=== PATIENT | male | born 1990 | race African-American/Black ===

== ENCOUNTER 2017-03-11 11:26 | Emergency (ER) | payer SELFPAY ==
[~2017-03-11] VITALS: Ht 170.2 cm; Wt 99.8 kg
[~2017-03-11 11:26] MED LIST: ALBU17AE3; ALBU17AE3 IH; HYDR12.570; HYDR1TAB PO
--- OUTSIDE RECORDS SUMMARY | 2017-03-11 11:32 | XMS REPORT ---
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 Info Not Available Non Drug Allergy Problems Problem Type Condition Code Onset Dates Condition Status Assessment HTN (hypertension) I10 Active Problem HTN (hypertension) I10 Active Problem Rash and other nonspecific skin eruption 782.1 Active Problem Asthma J45.909 Active Problem Unspecified disorder of skin and subcutaneous tissue 709.9 Active Assessment Asthma J45.909 Active Problem Asthma, unspecified, unspecified status 493.90 Active Problem Colitis, enteritis, and gastroenteritis of presumed infectious origin 009.1 Active Medications Medication Code System Code Instructions Start Date End Date Status Dosage Lisinopril [facility] [place] [address]-29 10 MG Orally Once a day Apr 11, 2015 1 tablet Ventolin HFA [facility] [place] [address]-86 90 mcg/actuation every 4 hrs prn May 12, 2013 inhale 2 puff by Inhalation route as needed every 4 hours PRN for cough or wheeze or before exercise Symbicort [facility] [place] [address]-91 160-4.5 mcg/actuation Twice a day May 29, 2013 Aug 09, 2015 inhale 2 puffs by inhalation route 2 times per day in the morning and evening Procedures Procedure Coding System Code Date Office Visit, Est Pt., Level 3 CPT-4 11330 Apr 11, 2015 Vital Signs Date/Time: Apr 11, 2015 Temperature 96.8 F Weight 208.2 lbs Height 67 in BMI 32.61 Index Blood Pressure Diastolic 82 mmHg Blood Pressure Systolic 120 mmHg Cardiac Monitoring Heart Rate 76 bpm Results No Known Results Summary Purpose [employer] Submission
[2017-03-11] MEDS ORDERED: DEXAMETHASONE 10 MG/ML (DECADRON) 1 ML VIAL ONE (11:52)
[2017-03-11] MEDS ORDERED: AMOX500C2 PO (11:58)
[2017-03-11] MEDS ORDERED: FEXO1TAB40 PO (11:58)
--- NOTE | 2017-03-11 11:58 | ED EENT ---
History of Present Illness General Chief Complaint: Cough/Cold/Flu Symptoms Stated Complaint: RUNNING NOSE,CONGESTED Nursing Triage Note: c/o runny nose and stuffy nose x 3 weeks Source: patient Exam Limitations: no limitations History of Present Illness Time seen by provider: 11:54 Initial Comments To ER with nasal congestion and rhinorrhea for 3 weeks. No pain. No fevers. No sore throat. No cough. He's tried multiple gnov-xrt-qmlhsra medications without relief. Timing/Duration: gradual Severity: moderate Location: nose Allergies and Home Medications Allergies Coded Allergies: No Known Drug Allergies (Unverified Allergy, Mild, 11/07/09) Home Medications Albuterol 17 Gm Inh, (Reported) Albuterol 17 Gm Inh, 2 SPRAY IH Q 4 HOURS PRN for BREATHING, #1 USE WITH SPACER AT ALL TIMES---FOR BREATHING Prescribed by: VINCE BARRETT on 05/10/13 4822 Review of Systems Constitutional: see HPI Eyes: No Symptoms Reported Ears: No Symptoms Reported Nose: see HPI, congestion Mouth: no symptoms reported Throat: no symptoms reported Respiratory: no symptoms reported Cardiovascular: no symptoms reported Musculoskeletal: no symptoms reported Past Bxvzslc-Iddrbk-Zqrzla Hx Patient Social History Alcohol Use: Occasionally Uses Recreational Drug Use: No Smoking Status: Never a Smoker Recent Foreign Travel: No Contact w/Someone Who Travel: No Recent Infectious Disease Expo: No Surgeries History of Surgeries: No Respiratory History of Respiratory Disorde: Yes Respiratory Disorders: Asthma Cardiovascular History of Cardiac Disorders: Yes Neurological History of Neurological Disord: No Reproductive System Sexually Transmitted Disease: No Gastrointestinal History of Gastrointestinal Di: No Musculoskeletal History of Musculoskeletal Dis: No Endocrine History of Endocrine Disorders: No Cancer History of Cancer: No Psychosocial History of Psychiatric Problem: No Integumentary History of Skin or Integumenta: No Blood Transfusions History of Blood Disorders: No Physical Exam Vital Signs Vital Sign - Last 12Hours 03/11/17 11:43 Temp 98.6 Pulse 75 Resp 18 B/P (MAP) 142/98 Pulse Ox 97 General Appearance: WD/WN, no apparent distress Eyes: bilateral eye normal inspection, bilateral eye PERRL, bilateral eye EOMI Ears: bilateral ear auricle normal, bilateral ear canal normal, bilateral ear TM normal Neck: non-tender, full range of motion Respiratory: normal breath sounds, no respiratory distress, no accessory muscle use Gastrointestinal: normal bowel sounds, non tender, soft Neurologic/Psychiatric: alert, normal mood/affect, oriented x 3 Skin: normal color, warm/dry Progress/Results/Core Measures Results/Orders My Orders Orders - GM ADAME APRN Dexamethasone Pf Injection (Decadron Pf (03/11/17 12:00) Vital Signs/I&O Vital Sign - Last 12Hours 03/11/17 11:43 Temp 98.6 Pulse 75 Resp 18 B/P (MAP) 142/98 Pulse Ox 97 Blood Pressure Mean: 113 Departure Impression Impression: Primary Impression: Acute bacterial sinusitis Disposition: HOME, SELF-CARE Condition: Stable (ERASED) Departure-Patient Inst. Decision time for Depature: 11:55 Referrals: NO,LOCAL PHYSICIAN (PCP/Family) Primary Care Physician Patient Instructions: Sinusitis in Adults Add. Discharge Instructions: Medication as directed 1. Return to ER for any concerns 2. See your regular doctor later this week Scripts Fexofenadine/Pseudoephedrine (Sravanthi-D 12 Hour Tablet) 1 Each Tab.er.12h 1 EACH PO BID Y for CONGESTION, #14 TAB Prov: GM ADAME APRN 03/11/17 Amoxicillin (Amoxicillin) 500 Mg Capsule 500 MG PO TID, #30 CAP Prov: GM ADAME APRN 03/11/17 GM ADAME APRN Mar 11, 2017 11:58
[2017-03-11] MEDS ORDERED: DEXAMETHASONE PF 10 MG/ML (DECADRON) VIAL IM ONE (12:00)
[2017-03-11 12:02] VITALS: BP 142/98
== END 2017-03-11 12:02 | disposition home or self-care (01) ==
LOC: EDUNIT# 11:26 → ER 11:29
DX: J01.90 Acute sinusitis, unspecified (principal); B96.89 Other specified bacterial agents as the cause of diseases classified elsewhere; J45.909 Unspecified asthma, uncomplicated
CPT/HCPCS: 96372; 99284

== ENCOUNTER 2017-07-12 19:02 | Emergency (ER) | payer BC, OTHER ==
[~2017-07-12] VITALS: Ht 170.2 cm; Wt 97.1 kg
[~2017-07-12 19:02] MED LIST changes: +AMOX500C2 PO; +FEXO1TAB40 PO
[2017-07-12] MEDS ORDERED: RT-ALBUTEROL/IPRATROPIUM 3 ML (DUONEB) VIAL INH ONE (19:15)
[2017-07-12 19:28] LABS: BASOPHILS % (AUTO) 1 % (0-10); EOSINOPHILS # (AUTO) 0.3 10^3/uL (0.0-0.3); EOSINOPHILS % (AUTO) 4 % (0-10); HEMATOCRIT 43 % (40-54); HEMOGLOBIN 15.5 G/DL (13.3-17.7); LYMPHOCYTES # (AUTO) 2.5 X 10^3 (1.0-4.0); LYMPHOCYTES % (AUTO) 41 % (12-44); MEAN CORPUSCULAR HEMOGLOBIN 32 PG (25-34); MEAN CORPUSCULAR HGB CONC 36 G/DL (32-36); MEAN CORPUSCULAR VOLUME 89 FL (80-99); MONOCYTES # (AUTO) 0.3 X 10^3 (0.0-1.0); MONOCYTES % (AUTO) 6 % (0-12); NEUTROPHILS # (AUTO) 2.9 X 10^3 (1.8-7.8); NEUTROPHILS % (AUTO) 49 % (42-75); PLATELET COUNT 176 10^3/uL (130-400); RED BLOOD COUNT 4.78 10^6/uL (4.35-5.85); RED CELL DISTRIBUTION WIDTH 12.7 % (10.0-14.5)
[2017-07-12 19:47] LABS: ALANINE AMINOTRANSFERASE 45 U/L (0-55); ALBUMIN 4.2 GM/DL (3.2-4.5); ALKALINE PHOSPHATASE 39 U/L (40-136); BILIRUBIN,TOTAL 0.4 MG/DL (0.1-1.0); BUN/CREATININE RATIO 13; CALCIUM 9.2 MG/DL (8.5-10.1); CARBON DIOXIDE 26 MMOL/L (21-32); CHLORIDE 102 MMOL/L (98-107); CREATININE SERUM 1.02 MG/DL (0.60-1.30); GFR ESTIMATED > 60; GLUCOSE 89 MG/DL (70-105); POTASSIUM 4.1 MMOL/L (3.6-5.0); SODIUM 139 MMOL/L (135-145); TOTAL PROTEIN 7.5 GM/DL (6.4-8.2)
--- NOTE | 2017-07-12 19:56 | Diagnostic Imaging Report ---
EXAMINATION: PA and lateral chest INDICATION: Chest tightness and cough with history of asthma. FINDINGS: The lungs are hyperinflated evidenced by flattening of the diaphragms. There is some mild prominence of the central interstitial markings. There is no focal infiltrate. There is no effusion or pneumothorax. The heart size appears normal. There is no osseous abnormality. IMPRESSION: 1. Pulmonary hyperinflation with air trapping. No focal infiltrates are demonstrated. Dictated by: Dictated on workstation # [id number]
[2017-07-12] MEDS ORDERED: GUAI1TBM19 PO (20:04)
[2017-07-12] MEDS ORDERED: METH4TAB PO (20:04)
[2017-07-12] MEDS ORDERED: BUDE90AE2 IH (20:04)
[2017-07-12] MEDS ORDERED: BENZ-13 PO (20:04)
[2017-07-12] MEDS ORDERED: RX-ALBUTEROL INHALER (PROAIR) 8 GM IH STA (20:05)
--- NOTE | 2017-07-12 20:05 | ED Respiratory ---
General Chief Complaint: Chest Pain Stated Complaint: CP AND ASTHMA Nursing Triage Note: pt reports to er today with soa and chest pain when taking deep breath. sent over from [facility]. pt reports this has been going on for few weeks and not getting any better. pt ran out of albuterol inhaler on 07/10/17. pt denies soa at this time. vss. Source: patient History of Present Illness Time seen by provider: 19:10 Initial Comments PT ARRIVES VIA POV--SENT HERE FROM [facility]. 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 --LEFT WORK TODAY DUE TO THESE SYMPTOMS PCP: [facility] Allergies and Home Medications Allergies Coded Allergies: No Known Drug Allergies (Unverified Allergy, Mild, 11/07/09) Home Medications Albuterol 17 Gm Inh, 2 SPRAY IH Q 4 HOURS PRN for BREATHING, #1 USE WITH SPACER AT ALL TIMES---FOR BREATHING Prescribed by: VINCE BARRETT on 05/10/13 2308 Benzonatate 100 Mg Capsule, 1-2 TAB PO TID, #30 Prescribed by: VINCE BARRETT on 07/12/172003 Budesonide 90 Mcg Aer.pow.ba, 90 MCG IH BID, #1 Prescribed by: VINCE BARRETT on 07/12/172003 Guaifenesin/Dextromethorphan 1 Each Tbmp.12hr, 1 EACH PO BID for 10 Days, #20 Prescribed by: VINCE BARRETT on 07/12/172003 Methylprednisolone 4 Mg Tab.ds.pk, 4 MG PO UD, #1 Prescribed by: VINCE BARRETT on 07/12/172003 Constitutional: no symptoms reported, No chills, No diaphoresis, No dizziness, No fever EENTM: no symptoms reported, No nose congestion Respiratory: see HPI, cough, short of breath (WITH COUGHING ) Cardiovascular: see HPI, chest pain (WITH COUGHING) Gastrointestinal: no symptoms reported Genitourinary: no symptoms reported Musculoskeletal: no symptoms reported Skin: no symptoms reported Psychiatric/Neurological: See HPI, Anxiety Hematologic/Lymphatic: No Symptoms Reported Immunological/Allergic: no symptoms reported Past Jqoeymo-Bvwprb-Conwzf Hx Patient Social History Alcohol Use: Occasionally Uses (ONCE A WEEK) Alcohol Beverage of Choice: Beer Recreational Drug Use: Yes (THC) Drug of Choice: Marijuana Smoking Status: Never a Smoker 2nd Hand Smoke Exposure: Yes Recent Foreign Travel: No Contact w/Someone Who Travel: No Recent Infectious Disease Expo: No Recent Hopitalizations: No Physical Abuse: No Sexual Abuse: No Mistreated: No Fear: No Immunizations Up To Date Tetanus Booster (TDap): Unknown Seasonal Allergies Seasonal Allergies: Yes Surgeries History of Surgeries: No Respiratory History of Respiratory Disorde: Yes Respiratory Disorders: Asthma Cardiovascular History of Cardiac Disorders: Yes (HAS BEEN OFF BP MEDICATIONS FOR A COUPLE OF YEARS--USED TO BE ON HYDROCHLOROTHIAZIDE--STATES A PROVIDER "HE WAS TOO YOUNG FOR BLOOD PRESSURE MEDICATION" AND TOLD HIM TO STOP TAKING IT. PER PT ON ) Cardiac Disorders: Hypertension Neurological History of Neurological Disord: No Reproductive System Sexually Transmitted Disease: No Genitourinary History of Genitourinary Disor: No Gastrointestinal History of Gastrointestinal Di: No Musculoskeletal History of Musculoskeletal Dis: No Endocrine History of Endocrine Disorders: No HEENT History of HEENT Disorders: No Cancer History of Cancer: No Psychosocial History of Psychiatric Problem: No Suicide Risk Score: 1 Integumentary History of Skin or Integumenta: No Blood Transfusions History of Blood Disorders: No Physical Exam Vital Signs Vital Sign - Last 12Hours 07/12/17 19:10 Temp 98.6 Pulse 75 Resp 18 B/P (MAP) 144/104 (117) Pulse Ox 97 O2 Delivery Room Air Capillary Refill : Less Than 3 Seconds General Appearance: WD/WN, no apparent distress HEENT: PERRL/EOMI, normal ENT inspection, TMs normal, pharynx normal Neck: non-tender, full range of motion, supple, normal inspection Respiratory: normal breath sounds, no respiratory distress, no accessory muscle use Cardiovascular: normal peripheral pulses, regular rate, rhythm, no edema, no murmur Gastrointestinal: normal bowel sounds, non tender, soft Extremities: normal inspection, no pedal edema, no calf tenderness, normal capillary refill 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/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 II-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 nml as tested, no motor/sensory deficits, alert, normal mood/affect, oriented x 3 Skin: normal color, warm/dry Progress/Results/Core Measures Suspected Sepsis Recent Fever Within 48 Hours: No Infection Criteria Present: None New/Unexplained Altered Menta: No Sepsis Screen: No Definite Risk Sepsis Diagnosis: SIRS Temperature:98.6 Pulse: 75 Respiratory Rate: 18 Laboratory Tests 07/12/17 19:20: White Blood Count 6.0 Blood Pressure 144 /104 Mean: 117 Laboratory Tests 07/12/17 19:20: Creatinine 1.02, Platelet Count 176, Total Bilirubin 0.4 Results/Orders Lab Results Laboratory Tests Test 07/12/17 19:20 07/12/17 19:52 Range/Units White Blood Count 6.0 4.3-11.0 10^3/uL Red Blood Count 4.78 4.35-5.85 10^6/uL Hemoglobin 15.5 13.3-17.7 G/DL Hematocrit 43 40-54 % Mean Corpuscular Volume 89 80-99 FL Mean Corpuscular Hemoglobin 32 25-34 PG Mean Corpuscular Hemoglobin Concent 36 32-36 G/DL Red Cell Distribution Width 12.7 10.0-14.5 % Platelet Count 176 130-400 10^3/uL Mean Platelet Volume 10.0 7.4-10.4 FL Neutrophils (%) (Auto) 49 42-75 % Lymphocytes (%) (Auto) 41 12-44 % Monocytes (%) (Auto) 6 0-12 % Eosinophils (%) (Auto) 4 0-10 % Basophils (%) (Auto) 1 0-10 % Neutrophils # (Auto) 2.9 1.8-7.8 X 10^3 Lymphocytes # (Auto) 2.5 1.0-4.0 X 10^3 Monocytes # (Auto) 0.3 0.0-1.0 X 10^3 Eosinophils # (Auto) 0.3 0.0-0.3 10^3/uL Basophils # (Auto) 0.0 0.0-0.1 10^3/uL Sodium Level 139 135-145 MMOL/L Potassium Level 4.1 3.6-5.0 MMOL/L Chloride Level 102 98-107 MMOL/L Carbon Dioxide Level 26 21-32 MMOL/L Anion Gap 11 5-14 MMOL/L Blood Urea Nitrogen 13 7-18 MG/DL Creatinine 1.02 0.60-1.30 MG/DL Estimat Glomerular Filtration Rate > 60 BUN/Creatinine Ratio 13 Glucose Level 89 70-105 MG/DL Calcium Level 9.2 8.5-10.1 MG/DL Magnesium Level 2.0 1.8-2.4 MG/DL Total Bilirubin 0.4 0.1-1.0 MG/DL Aspartate Amino Transf (AST/SGOT) 30 5-34 U/L Alanine Aminotransferase (ALT/SGPT) 45 0-55 U/L Alkaline Phosphatase 39 L 40-136 U/L Troponin I < 0.30 <0.30 NG/ML B-Type Natriuretic Peptide < 10.0 <100.0 PG/ML Total Protein 7.5 6.4-8.2 GM/DL Albumin 4.2 3.2-4.5 GM/DL Urine Opiates Screen NEGATIVE NEGATIVE Urine Oxycodone Screen NEGATIVE NEGATIVE Urine Methadone Screen NEGATIVE NEGATIVE Urine Propoxyphene Screen NEGATIVE NEGATIVE Urine Barbiturates Screen NEGATIVE NEGATIVE Ur Tricyclic Antidepressants Screen NEGATIVE NEGATIVE Urine Phencyclidine Screen NEGATIVE NEGATIVE Urine Amphetamines Screen NEGATIVE NEGATIVE Urine Methamphetamines Screen NEGATIVE NEGATIVE Urine Benzodiazepines Screen NEGATIVE NEGATIVE Urine Cocaine Screen NEGATIVE NEGATIVE Urine Cannabinoids Screen POSITIVE H NEGATIVE My Orders Orders - VINCE BARRETT K DO Saline Lock/Iv-Start (07/12/17 19:10) Ekg Tracing (07/12/17 19:10) Monitor-Rhythm Ecg Trace Only (07/12/17 19:10) BNP (07/12/17 19:10) Cbc With Automated Diff (07/12/17 19:10) Comprehensive Metabolic Panel (07/12/17 19:10) Magnesium (07/12/17 19:10) Troponin I (07/12/17 19:10) Chest Pa/Lat (2 View) (07/12/17 19:10) Albuterol/Ipra Inhalation Soln (Duoneb I (07/12/17 19:15) Rt Request For Service (07/12/17 19:10) Svn Sm Volume Nebulizer Rt-Rfs (07/12/17 19:10) Drug Screen Stat (Urine) (07/12/17 19:21) Rx-Albuterol Inhaler (Rx-Proair) (07/12/17 20:05) Methylprednisolone Sod Succ (Solu-Medrol (07/12/17 20:15) Benzonatate Capsule (Tessalon Perles) (07/12/17 20:15) Medications Given in ED Vital Signs/I&O Vital Sign - Last 12Hours 07/12/17 07/12/17 07/12/17 07/12/17 19:10 19:29 19:30 20:57 Temp 98.6 Pulse 75 79 Resp 18 18 B/P (MAP) 144/104 (117) Pulse Ox 97 96 98 O2 Delivery Room Air Room Air Room Air Room Air Capillary Refill : Less Than 3 Seconds Blood Pressure Mean: 117 Progress Note : Progress Note FEELS BETTER AT DISMISSAL ALSO DISCUSSED THE NEED FOR FOLLOW UP WITH [facility] THIS WEEK FOR THIS PROBLEM WELL ELEVATED BP. BP DOWN TO 141/95 PRIOR TO DISMISSAL Diagnostic Imaging Comments CXR--NO ACUTE PROCESS, HYPER INFLATION PER RADIOLOGIST REPORT @ 1999 Reviewed: Reviewed by Me Departure Impression Impression: Primary Impression: Asthma Additional Impression: HTN (hypertension) Disposition: HOME, SELF-CARE Condition: Stable Departure-Patient Inst. Referrals: [facility] Patient Instructions: Asthma Action Plan, Asthma, Adult (DC), Avoiding Asthma Triggers, Rescue vs Controller Inhalers Add. Discharge Instructions: USE YOUR INHALERS PRESCRIBED--DO NOT USE MORE OFTEN THAN PRESCRIBED FOLLOW UP WITH [facility] THIS WEEK FOR FURTHER CARE All discharge instructions reviewed with patient and/or family. Voiced understanding. Scripts Guaifenesin/Dextromethorphan (Mucinex Dm ER 1,200-60 mg Tab) 1 Each Tbmp.12hr 1 EACH PO BID for 10 Days, #20 EA Prov: NENA,VINCE K DO 07/12/17 Benzonatate (Tessalon Perle) 100 Mg Capsule 1-2 TAB PO TID for Cough, #30 CAP Prov: NENA,VINCE K DO 07/12/17 Methylprednisolone (Medrol) 4 Mg Tab.ds.pk 4 MG PO UD, #1 PKG Prov: NENA,VINCE K DO 07/12/17 Budesonide (Pulmicort Flexhaler) 90 Mcg Aer.pow.ba 90 MCG IH BID, #1 UNIT Prov: VINCE BARRETT DO 07/12/17 VINCE BARRETT DO Jul 12, 2017 20:05
[2017-07-12 20:13] LABS: AMPHETAMINE SCREEN, URINE NEGATIVE (NEGATIVE); BARBITURATE SCREEN URINE NEGATIVE (NEGATIVE); BENZODIAZEPINES SCREEN URINE NEGATIVE (NEGATIVE); CANNABINOID SCREEN, URINE POSITIVE (NEGATIVE); COCAINE SCREEN URINE NEGATIVE (NEGATIVE); METHADONE STAT NEGATIVE (NEGATIVE); METHAMPHETAMINE SCREEN URINE S NEGATIVE (NEGATIVE); OPIATE SCREEN URINE NEGATIVE (NEGATIVE); OXYCODONE STAT NEGATIVE (NEGATIVE); PROPOXYPHENE STAT NEGATIVE (NEGATIVE); TRICYCLIC ANTIDEPRESSANTS SCRE NEGATIVE (NEGATIVE)
[2017-07-12] MEDS ORDERED: methylPREDNISolone 125 MG (Solu-MEDROL) VIAL IVP ONE (20:15)
[2017-07-12] MEDS ORDERED: BENZONATATE 100 MG (TESSALON) CAPSULE PO SCH (20:15)
[2017-07-12 20:57] VITALS: BP 145/89
--- OUTSIDE RECORDS SUMMARY | 2017-07-13 00:54 | XMS REPORT | Continuity of Care Document ---
Author Author [facility] Organization [facility] Address Unknown Phone Unavailable Allergies Active Description Code Type Severity Reaction Onset Reported/Identified Relationship to Patient Clinical Status Yes No Known Drug Allergies [id number] Drug Allergy Mild N/A 11/07/2009 Medications There is no data. Problems Date Dx Coded Attending Type Code Diagnosis Diagnosed By 11/08/2009 MONSE JOHNSON APRN 848.9 UNSPECIFIED SITE OF SPRAIN AND STRAIN 11/08/2009 NICOLAS LEAHY DO 848.9 UNSPECIFIED SITE OF SPRAIN AND STRAIN 11/08/2009 FABRIZIO DAVILA APRN 848.9 UNSPECIFIED SITE OF SPRAIN AND STRAIN 11/08/2009 TEO NGUYEN APRN 848.9 UNSPECIFIED SITE OF SPRAIN AND STRAIN 11/18/2010 MONSE JOHNSON APRN 704.8 FOLLICULITIS 11/18/2010 NICOLAS LEAHY DO 704.8 FOLLICULITIS 11/18/2010 FABRIZIO DAVILA APRN S 704.8 FOLLICULITIS 11/18/2010 TEO NGUYEN APRN 704.8 FOLLICULITIS 04/03/2011 MONSE JOHNSON APRN R 706.1 OTHER ACNE 04/03/2011 NICOLAS LEAHY DO 706.1 OTHER ACNE 04/03/2011 FABRIZIO DAVILA APRN S 706.1 OTHER ACNE 04/03/2011 TEO NGUYEN APRN 706.1 OTHER ACNE 05/28/2011 MONSE JOHNSON APRN 701.4 KELOID SCAR 05/28/2011 NICOLAS LEAHY DO 701.4 KELOID SCAR 05/28/2011 FABRIZIO DAVILA APRN S 701.4 KELOID SCAR 05/28/2011 TEO NGUYEN APRN 701.4 KELOID SCAR 05/10/2013 VINCE BARRETT DO Ot 493.90 ASTHMA, UNSPECIFIED 05/10/2013 VINCE BARRETT DO Ot 493.92 ASTHMA, UNSPECIFIED, W (ACUTE) EXACERBAT 05/10/2013 VINCE BARRETT DO Ot V15.81 HX OF PAST NONCOMPLIANCE 05/12/2013 MONSE JOHNSON APRN 493.90 ASTHMA UNSPECIFIED 05/12/2013 ARMOND [place] NICOLAS Tommy 493.90 ASTHMA UNSPECIFIED 05/12/2013 FABRIZIO DAVILA APRN 493.90 ASTHMA UNSPECIFIED 05/12/2013 TEO NGUYEN APRN 493.90 ASTHMA UNSPECIFIED 05/29/2013 NICOLAS LEAHY DO K 709.9 UNSPECIFIED DISORDER OF SKIN AND SUBCUTANEOUS TISSUE 05/29/2013 FABRIZIO DAVILA APRN 709.9 UNSPECIFIED DISORDER OF SKIN AND SUBCUTANEOUS TISSUE 05/29/2013 TEO NGUYEN APRN 709.9 UNSPECIFIED DISORDER OF SKIN AND SUBCUTANEOUS TISSUE 06/18/2013 FABRIZIO DAVILA APRN 009.1 GASTROENTERITIS, ACUTE INFECTIOUS 06/18/2013 TEO NGUYEN APRN 009.1 GASTROENTERITIS, ACUTE INFECTIOUS 12/07/2013 TEO NGUYEN APRN 782.1 RASH 03/11/2017 GM ADAME APRN Ot B96.89 OTH BACTERIAL AGENTS THE CAUSE OF DIS 03/11/2017 GM ADAME APRN Ot J01.90 ACUTE SINUSITIS, UNSPECIFIED 03/11/2017 GM ADAME APRN Ot J45.909 UNSPECIFIED ASTHMA, UNCOMPLICATED 03/11/2017 GM ADAME APRN Ot R09.81 NASAL CONGESTION 03/13/2017 GM ADAME APRN Ot B96.89 OTH BACTERIAL AGENTS THE CAUSE OF DIS 03/13/2017 GM ADAME APRN Ot J01.90 ACUTE SINUSITIS, UNSPECIFIED 03/13/2017 GM ADAME APRN Ot J45.909 UNSPECIFIED ASTHMA, UNCOMPLICATED 03/13/2017 GM ADAME APRN Ot R09.81 NASAL CONGESTION Procedures Code Description Performed By Performed On GENERAL S GARFIELD BROWN 05/29/2013 GENERAL S MARK HOBBS 06/18/2013 Results Test Result Range Complete blood count (CBC) with automated white blood cell (WBC) differential - 07/12/17 19:20 Blood leukocytes automated count (number/volume) 6.0 10*3/uL 4.3-11.0 Blood erythrocytes automated count (number/volume) 4.78 10*6/uL 4.35-5.85 Venous blood hemoglobin measurement (mass/volume) 15.5 g/dL 13.3-17.7 Blood hematocrit (volume fraction) 43 % 40-54 Automated erythrocyte mean corpuscular volume 89 [foz_us] 80-99 Automated erythrocyte mean corpuscular hemoglobin (mass per erythrocyte) 32 pg 25-34 Automated erythrocyte mean corpuscular hemoglobin concentration measurement ( mass/volume) 36 g/dL 32-36 Automated erythrocyte distribution width ratio 12.7 % 10.0-14.5 Automated blood platelet count (count/volume) 176 10*3/uL 130-400 Automated blood platelet mean volume measurement 10.0 [foz_us] 7.4-10.4 Automated blood neutrophils/100 leukocytes 49 % 42-75 Automated blood lymphocytes/100 leukocytes 41 % 12-44 Blood monocytes/100 leukocytes 6 % 0-12 Automated blood eosinophils/100 leukocytes 4 % 0-10 Automated blood basophils/100 leukocytes 1 % 0-10 Blood neutrophils automated count (number/volume) 2.9 10*3 1.8-7.8 Blood lymphocytes automated count (number/volume) 2.5 10*3 1.0-4.0 Blood monocytes automated count (number/volume) 0.3 10*3 0.0-1.0 Automated eosinophil count 0.3 10*3/uL 0.0-0.3 Automated blood basophil count (count/volume) 0.0 10*3/uL 0.0-0.1 Comprehensive metabolic panel - 07/12/17 19:20 Serum or plasma sodium measurement (moles/volume) 139 mmol/L 135-145 Serum or plasma potassium measurement (moles/volume) 4.1 mmol/L 3.6-5.0 Serum or plasma chloride measurement (moles/volume) 102 mmol/L 98-107 Carbon dioxide 26 mmol/L 21-32 Serum or plasma anion gap determination (moles/volume) 11 mmol/L 5-14 Serum or plasma urea nitrogen measurement (mass/volume) 13 mg/dL 7-18 Serum or plasma creatinine measurement (mass/volume) 1.02 mg/dL 0.60-1.30 Serum or plasma urea nitrogen/creatinine mass ratio 13 NRG Serum or plasma creatinine measurement with calculation of estimated glomerular filtration rate > NRG Serum or plasma glucose measurement (mass/volume) 89 mg/dL 70-105 Serum or plasma calcium measurement (mass/volume) 9.2 mg/dL 8.5-10.1 Serum or plasma total bilirubin measurement (mass/volume) 0.4 mg/dL 0.1-1.0 Serum or plasma alkaline phosphatase measurement (enzymatic activity/volume) 39 U/L 40-136 Serum or plasma aspartate aminotransferase measurement (enzymatic activity/ volume) 30 U/L 5-34 Serum or plasma alanine aminotransferase measurement (enzymatic activity/volume ) 45 U/L 0-55 Serum or plasma protein measurement (mass/volume) 7.5 g/dL 6.4-8.2 Serum or plasma albumin measurement (mass/volume) 4.2 g/dL 3.2-4.5 Magnesium - 07/12/17 19:20 Magnesium 2.0 mg/dL 1.8-2.4 Serum or plasma troponin i.cardiac measurement (mass/volume) - 07/12/17 19:20 Serum or plasma troponin i.cardiac measurement (mass/volume) < ng/ mL <0.30 Serum or plasma lithium measurement (moles/volume) - 07/12/17 19:20 BNP level < pg/mL <100.0 Urine drug screening test - 07/12/17 19:52 Urine phencyclidine detection by screening method NEGATIVE NEGATIVE Urine benzodiazepines detection by screening method NEGATIVE NEGATIVE Urine cocaine detection NEGATIVE NEGATIVE Urine amphetamines detection by screening method NEGATIVE NEGATIVE Urine methamphetamine detection by screening method NEGATIVE NEGATIVE Urine cannabinoids detection by screening method POSITIVE NEGATIVE Urine opiates detection by screening method NEGATIVE NEGATIVE Urine barbiturates detection NEGATIVE NEGATIVE Screening urine tricyclic antidepressants detection NEGATIVE NEGATIVE Urine methadone detection by screening method NEGATIVE NEGATIVE Urine oxycodone detection NEGATIVE NEGATIVE Urine propoxyphene detection NEGATIVE NEGATIVE Encounters ACCT No. Visit Date/Time Discharge Status Pt. Type Provider Facility Loc./Unit Complaint [id number] 03/11/2017 11:29:00 03/11/2017 12:02:00 DIS Emergency GM ADAME APRN [facility] ER RUNNING NOSE,CONGESTED [id number] 05/10/2013 22:41:00 05/10/2013 23:13:00 DIS Emergency VINCE BARRETT DO [facility] ER ASTHMA ATTACK [id number] 07/12/2017 19:29:00 Document Registration [id number] 12/07/2013 14:49:00 12/07/2013 23:59:59 CLS Outpatient TEO NGUYEN APRN [id number] 06/18/2013 17:24:00 06/18/2013 23:59:59 CLS Outpatient FABRIZIO DAVILA APRN [id number] 05/29/2013 11:03:00 05/29/2013 23:59:59 CLS Outpatient NICOLAS LEAHY DO [id number] 05/12/2013 12:39:00 05/12/2013 23:59:59 CLS Outpatient MONSE JOHNSON APRN
== END 2017-07-12 20:57 | disposition home or self-care (01) ==
LOC: EDUNIT# 19:02 → ER 19:03
DX: J45.909 Unspecified asthma, uncomplicated (principal); I10 Essential (primary) hypertension; F12.10 Cannabis abuse, uncomplicated; Z77.22 Contact with and (suspected) exposure to environmental tobacco smoke (acute) (chronic)
CPT/HCPCS: 36415; 71046; 80053; 80306; 83735; 83880; 84484; 85025; 93005; 93041; 94640

== ENCOUNTER 2019-07-11 02:19 | Emergency (ER) | payer BC, OTHER ==
[~2019-07-11] VITALS: Ht 170 cm; Wt 91.4 kg
[~2019-07-11 02:19] MED LIST changes: +BENZ100C18 PO; +BUDE90AE2 IH; +GUAI1TBM19 PO; +METH4TAB PO
--- NOTE | 2019-07-11 02:37 | NUR ---
pt voided in waiting room restroom when called back. informed urine specimen needed.
[2019-07-11] MEDS ORDERED: LACTATED RINGERS 1,000 ML IV ONE ×2 (03:24→04:16)
[2019-07-11 03:34] LABS: BILIRUBIN,URINE NEGATIVE (NEGATIVE); CLARITY,URINE CLEAR; COLOR,URINE YELLOW; GLUCOSE, URINE (UA) NEGATIVE (NEGATIVE); KETONES,URINE NEGATIVE (NEGATIVE); LEUKOCYTE ESTERASE ,URINE NEGATIVE (NEGATIVE); NITRITE,URINE NEGATIVE (NEGATIVE); PH,URINE 5.5 (5-9); PROTEIN,URINE NEGATIVE (NEGATIVE)
[2019-07-11 03:40] LABS: BASOPHILS % (AUTO) 1 % (0-10); EOSINOPHILS # (AUTO) 0.1 10^3/uL (0.0-0.3); EOSINOPHILS % (AUTO) 2 % (0-10); HEMATOCRIT 44 % (40-54); HEMOGLOBIN 14.9 G/DL (13.3-17.7); LYMPHOCYTES # (AUTO) 2.2 X 10^3 (1.0-4.0); LYMPHOCYTES % (AUTO) 36 % (12-44); MEAN CORPUSCULAR HEMOGLOBIN 33 PG (25-34); MEAN CORPUSCULAR HGB CONC 34 G/DL (32-36); MEAN CORPUSCULAR VOLUME 96 FL (80-99); MEAN PLATELET VOLUME 9.9 FL (7.4-10.4); MONOCYTES # (AUTO) 0.4 X 10^3 (0.0-1.0); MONOCYTES % (AUTO) 7 % (0-12); NEUTROPHILS # (AUTO) 3.4 X 10^3 (1.8-7.8); NEUTROPHILS % (AUTO) 55 % (42-75); PLATELET COUNT 202 10^3/uL (130-400); RED CELL DISTRIBUTION WIDTH 13.7 % (10.0-14.5); WHITE BLOOD COUNT 6.2 10^3/uL (4.3-11.0)
[2019-07-11 03:52] LABS: AMPHETAMINE SCREEN, URINE NEGATIVE (NEGATIVE); BACTERIA,URINE TRACE /HPF; BARBITURATE SCREEN URINE NEGATIVE (NEGATIVE); BENZODIAZEPINES SCREEN URINE NEGATIVE (NEGATIVE); CANNABINOID SCREEN, URINE POSITIVE (NEGATIVE); COCAINE SCREEN URINE NEGATIVE (NEGATIVE); METHADONE STAT NEGATIVE (NEGATIVE); METHAMPHETAMINE SCREEN URINE S NEGATIVE (NEGATIVE); OPIATE SCREEN URINE NEGATIVE (NEGATIVE); OXYCODONE STAT NEGATIVE (NEGATIVE); PROPOXYPHENE STAT NEGATIVE (NEGATIVE); SQUAMOUS EPITHELIAL CELL,UR RARE /HPF; TRICYCLIC ANTIDEPRESSANTS SCRE NEGATIVE (NEGATIVE)
[2019-07-11 04:00] VITALS: BP 127/78
[2019-07-11 04:00] LABS: ALANINE AMINOTRANSFERASE 46 U/L (0-55); ALBUMIN 4.6 GM/DL (3.2-4.5); ALKALINE PHOSPHATASE 45 U/L (40-136); BILIRUBIN,TOTAL 0.5 MG/DL (0.1-1.0); BUN/CREATININE RATIO 7; CARBON DIOXIDE 23 MMOL/L (21-32); CHLORIDE 106 MMOL/L (98-107); CREATININE SERUM 1.08 MG/DL (0.60-1.30); GFR ESTIMATED > 60; GLUCOSE 95 MG/DL (70-105); POTASSIUM 3.4 MMOL/L (3.6-5.0); SALICYLATE < 5.0 MG/DL (5.0-20.0); SODIUM 143 MMOL/L (135-145); TOTAL PROTEIN 7.7 GM/DL (6.4-8.2)
[2019-07-11 04:05] LABS: ACETAMINOPHEN < 10 UG/ML (10-30)
[2019-07-11 04:19] LABS: TSH (THYROID ANALYZER) 1.24 UIU/ML (0.35-4.94)
[2019-07-11 06:15] VITALS: BP 135/99
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
--- NOTE | 2019-07-11 09:56 | NUR ---
SPOKE WITH [facility]IS[facility] MICHAEL. WILL BE HERE TO TRANSPORT PT AT 1130.
[2019-07-11 11:44] VITALS: BP 121/90
== END 2019-07-11 11:44 | disposition short-term general hospital (02) ==
LOC: EDUNIT# 02:19 → ER 02:24
DX: F32.9 Major depressive disorder, single episode, unspecified (principal); F10.20 Alcohol dependence, uncomplicated; F12.10 Cannabis abuse, uncomplicated; I10 Essential (primary) hypertension; F41.9 Anxiety disorder, unspecified; J45.909 Unspecified asthma, uncomplicated; Z91.14 Patient's other noncompliance with medication regimen
CPT/HCPCS: 36415; 80053; 80306; 80320; 80329; 81000; 84443; 85025; 93005; 96360; 96361

== ENCOUNTER 2021-01-25 16:28 | Emergency (ER) | payer SELFPAY ==
[~2021-01-25] VITALS: Ht 170 cm; Wt 97.5 kg
[2021-01-25] MEDS ORDERED: RT-ALBUTEROL INHALER HFA (VENTOLIN HFA) 18 GM IH ONE (16:49)
[2021-01-25] MEDS ORDERED: IBUPROFEN 600 MG (MOTRIN) TAB PO ONE ×2 (16:49→17:00)
--- NOTE | 2021-01-25 16:50 | ED Cough/URI ---
General Chief Complaint: Cough/Cold/Flu Symptoms Stated Complaint: COUGH, SOB, COVID POSITIVE Nursing Triage Note: PT PRESENTS TO ED VIA POV FROM HOME WITH COMPLAINTS OF COUGH, DIZZINESS, AND MALAISE STARTING 3 DAYS AGO. PT REPROTS HE TESTED POSITIVE FOR COVID TODAY AT [facility]. Source: patient Exam Limitations: no limitations History of Present Illness Date Seen by Provider: Jan 25, 2021 Time Seen by Provider: 16:35 Initial Comments This is a well appearing 30 yo male who presented to the ER with c/o cough, dizziness, and difficulty taking deep breath for the past 3 days. States he tested positive for COVID today. Has history of HTN and Asthma. Had Rudolph and Rudolph COVID vaccine. Allergies and Home Medications Allergies Coded Allergies: No Known Drug Allergies (Unverified Allergy, Mild, 11/07/09) Home Medications Albuterol 17 Gm Inh, 2 SPRAY IH Q 4 HOURS PRN for BREATHING USE WITH SPACER AT ALL TIMES---FOR BREATHING Prescribed by: VINCE BARRETT on 05/10/132307 Budesonide 90 Mcg Aer.pow.ba, 90 MCG IH BID Prescribed by: VINCE BARRETT on 07/12/172003 Methylprednisolone 4 Mg Tab.ds.pk, 4 MG PO UD PER DOSE PACK INSTRUCTIONS Prescribed by: TE CHO on 01/25/21 175 Past Raatfzj-Mklnws-Yrrenn Hx Patient Social History Tobacco Use?: No Smokeless Tobacco Frequency: Never a User Use of E-Cig and/or Vaping dev: No Use of E-Cig and/or Vaping Yunier: Never a User Substance use?: Yes Substance type: Marijuana Alcohol Use?: Yes Alcohol Frequency: Once in a while Pt feels they are or have been: No Immunizations Up To Date Tetanus Booster (TDap): Unknown First/Initial COVID19 Vaccinat: 11-22-20 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 Director 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: [employer] Seasonal Allergies Seasonal Allergies: Yes Past Medical History Surgery/Hospitalization HX: pmh: htn, depression, asthma Surgeries: No Respiratory: Yes Asthma Cardiac: Yes (HTN-RAN OUT/ QUIT TAKING MEDS BECAUSE HE DID NOT FOLLOW UP AND NO NEW RX'S) Hypertension Neurological: No Reproductive Disorders: No Sexually Transmitted Disease: No Genitourinary: No Gastrointestinal: No Musculoskeletal: No Endocrine: No HEENT: No Cancer: No Psychosocial: Yes Sleep Difficulties, Anxiety, Depression Integumentary: No Blood Disorders: No Physical Exam Vital Signs - First Documented 01/25/21 16:42 Temp 37.3 Pulse 97 Resp 20 B/P (MAP) 127/96 (106) Capillary Refill : Less Than 3 Seconds Height: 5'7.00" Weight: 214lbs. oz. 97.954475ke; 33.00 BMI Method:Stated Progress/Results/Core Measures Suspected Sepsis SIRS Temperature: Pulse: 97 Respiratory Rate: 20 Blood Pressure 127 /96 Mean: 106 Results/Orders Lab Results Laboratory Tests Test 01/25/21 16:49 Range/Units D-Dimer 1.79 H 0.00-0.49 UG/ML My Orders Orders - TE CHO APRN Albuterol Inhaler (Ventolin Hfa) (01/25/21 18:00) Ibuprofen Tablet (Motrin Tablet) (01/25/21 17:00) Ed Iv/Invasive Line Start (01/25/21 16:47) Chest 1 View, Ap/Pa Only (01/25/21 16:47) Fibrin Degradation Products (01/25/21 16:47) Dexamethasone Injection (Decadron Inje (01/25/21 16:49) Ibuprofen Tablet (Motrin Tablet) (01/25/21 16:49) Albuterol Inhaler (Ventolin Hfa) (01/25/21 16:49) Dexamethasone Injection (Decadron Inje (01/25/21 17:00) Ct Angio Chest W (01/25/21 18:01) Iohexol Injection (Omnipaque 350 Mg/Ml 1 (01/25/21 18:15) Received Contrast (Hold Metformin- Contr (01/25/21 18:15) Ns (Ivpb) (Sodium Chloride 0.9% Ivpb Bag (01/25/21 18:15) Medications Given in ED Current Medications Medications Dose Ordered Sig/David Route Start Time Stop Time Status Last Admin Dose Admin Ibuprofen 600 mg ONCE ONCE PO 01/25/21 17:00 01/25/21 17:01 DC 01/25/21 16:52 600 MG Iohexol 100 ml ONCE ONCE IV 01/25/21 18:15 01/25/21 18:16 DC 01/25/21 18:26 82 ML Sodium Chloride 100 ml ONCE ONCE IV 7/21/21 18:15 01/25/21 18:16 DC 01/25/21 18:26 80 ML Vital Signs/I&O 01/25/21 16:42 Temp 37.3 Pulse 97 Resp 20 B/P (MAP) 127/96 (106) Capillary Refill : Less Than 3 Seconds Blood Pressure Mean: 106 Diagnostic Imaging Diagonstic Imaging: Xray Plain Films/CT/US/NM/MRI: chest Comments [facility] [place] [place] NAME: WAYNE SERRANO [facility] REC#: [id number] PT STATUS: REG ER : 1990 PHYSICIAN: TE CHO SLEEPING CAR PORTER ADMIT DATE: 01/25/21/ER Signed Date of Exam:01/25/21 CHEST 1 VIEW, AP/PA ONLY INDICATION: COVID positive. COMPARISON: 07/12/2017. FINDINGS: Single view of the chest demonstrates clear lungs bilaterally. The heart is normal. There is no pneumothorax. Osseous structures are normal. IMPRESSION: Negative chest. Dictated by: Dictated on workstation # [id number] Dict: 01/25/21 1736 Trans: 01/25/21 1740 [id number] Interpreted by: GILMAR MORSE Electronically signed by: GILMAR MORSE 01/25/21 1740 Reviewed: Reviewed by Ut Departure Impression Primary Impression: COVID-19 Disposition: 01 HOME, SELF-CARE Condition: Improved Departure-Patient Inst. Decision time for Depature: 17:51 Referrals: [facility] (PCP/Family) Primary Care Physician Patient Instructions: COVID-19 ED, REGEN-COV (casirivimab and imdevimab) FDA Fact Sheet Add. Discharge Instructions: Plan: 1. Continue to isolate at home until you are released by the [facility]. 2. Use your inhaler 4 puffs every 4 hour hours as needed for shortness of breath with spacer. Use incentive spirometer every 2 hours as directed. 3. Drink plenty of fluids. May use Tylenol or Ibuprofen as needed for fever/pain. 4. Take steroids as directed, take with food. 5. The hospital will call you with date/time for monoclonal infusion details. 6. Return for any new, concerning, or worsening symptoms. All discharge instructions reviewed with patient and/or family. Voiced understanding. Scripts Methylprednisolone (Methylprednisolone Dose Pack) 4 Mg Tab.ds.pk 4 MG PO UD for 6 Days, #21 PKG 0 Refills PER DOSE PACK INSTRUCTIONS Prov: TE CHO APRN 01/25/21 TE CHO SLEEPING CAR PORTER Jan 25, 2021 16:50
--- NOTE | 2021-01-25 17:38 | Diagnostic Imaging Report ---
INDICATION: COVID positive. COMPARISON: 07/12/2017. FINDINGS: Single view of the chest demonstrates clear lungs bilaterally. The heart is normal. There is no pneumothorax. Osseous structures are normal. IMPRESSION: Negative chest. Dictated by: Dictated on workstation # [id number]
[2021-01-25] MEDS ORDERED: METH4TAB10 PO (17:51)
[2021-01-25] MEDS ORDERED: RT-ALBUTEROL INHALER HFA (VENTOLIN HFA) 18 GM IH SCH (18:00)
[2021-01-25] MEDS ORDERED: NS 100 ML (IVPB) BAG IV ONE (18:15)
[2021-01-25] MEDS ORDERED: HOLD METFORMIN - RECEIVED CONTRAST 20 ML VIAL IV SCH (18:15)
[2021-01-25] MEDS ORDERED: IOHEXOL 350 MG/ML 100 ML (OMNIPAQUE 350) VIAL IV ONE (18:15)
--- NOTE | 2021-01-25 18:43 | Diagnostic Imaging Report ---
PROCEDURE: CT angiography of the chest with contrast. TECHNIQUE: Multiple contiguous axial images were obtained through the chest after uneventful bolus administration of intravenous contrast. 3D reconstructed CTA MIP acquisitions were also performed. Auto Exposure Controls were utilized during the CT exam to meet ALARA standards for radiation dose reduction. INDICATION: Covid positive, elevated d-dimer There are no prior CTA chest examinations available for comparison. The plain film examination of the chest performed on 07/12/2017 failed to show any sign of an acute cardiopulmonary abnormality. On this exam, there is no defect within the pulmonary arteries to indicate a pulmonary embolus. The aorta is not abnormally dilated and there is no sign of a dissection. The heart size is within normal limits. There are no coronary artery calcifications evident. There are patchy alveolar/interstitial infiltrates involving both lungs with relative sparing of the right upper lobe. These findings do suggest pneumonia/atelectasis and may well be related to the patient's diagnosis of Covid-19. There is no pleural effusion identified. There is no mediastinal or hilar adenopathy. The thyroid gland was not well visualized. The sections through the upper abdomen failed to show any sign of an acute abnormality. The bone windows are unremarkable for a fracture or for a destructive lesion. IMPRESSION: 1. There are patchy alveolar/interstitial infiltrates involving both lungs. These are most likely due to pneumonia/atelectasis and may well be secondary to patient's diagnosis of Covid-19. Clinical follow-up is recommended. 2. There is no acute cardiopulmonary abnormality noted otherwise. In particular, there is no sign of any aortic dissection or of a pulmonary embolus. Dictated by: Dictated on workstation # [id number]
[2021-01-25 19:39] VITALS: BP 127/96
== END 2021-01-25 19:45 | disposition home or self-care (01) ==
LOC: EDUNIT# 16:28 → ER 16:31
DX: U07.1 COVID-19 (principal); I10 Essential (primary) hypertension
CPT/HCPCS: 36415; 71045; 71275; 85379

== ENCOUNTER → 2021-01-30 | Outpatient (CLI) | payer SELFPAY ==
[~2021-01-30] VITALS: Ht 170.2 cm; Wt 100.0 kg
[~2021-01-30] MED LIST changes: +CASIRIVIMAB/IMDEVIMAB 1,200 MG in NS (IVPB) 250 ML IV ONE; +EPINEPHrine INJECTION 1 MG/ML AMP IM PRN; +METH4TAB10 PO; +diphenhydrAMINE 50 MG/ML INJ (BENADRYL) IV PRN
[2021-01-30 12:24] VITALS: BP 128/85
[2021-01-30 14:15] VITALS: BP 124/75
== END ==
LOC: INFUSION 12:31
PROVIDERS: ATTEND Nurse Practitioner Family
DX: Z23 Encounter for immunization (principal); U07.1 COVID-19